=== PATIENT | female | born 1975 | race Caucasian/White ===

== ENCOUNTER 2019-04-19 12:43 | Outpatient (CLI) | payer OTHER ==
[2019-04-19] MEDS ORDERED: Gadobenate Dimeglumine 529 MG/1 ML (20ML VIAL) ONE (13:00)
--- NOTE | 2019-04-19 16:13 | MRI ---
MRI OF THE BILATERAL BREAST WITHOUT AND WITH CONTRAST: 04/19/19 COMPARISON: None. HISTORY: High risk of breast cancer. Patient has a strong family history of breast cancer, prostate cancer and pancreatic cancer. COMPARISON: None. TECHNIQUE: Multiplanar and multisequence MR images were obtained of the bilateral breasts without and with IV c ontrast. 3D MIP reformats and contrast enhancement curves were generalized on a [employer] workstation. FINDINGS: Scattered fibroglandular breast tissue is seen. Minimal background parenchymal enhancement is present . No suspicious enhancement or suspicious mass is seen within either breast. No axillary adenopathy is seen. No internal mammary lymph nodes are identified. The visualized anterior liver and osseous structures are unremarkable. IMPRESSION: BIRADS 1: Negative Routine annual screening mammography (for women over age 40) is still recommended as calcifications cannot be assessed with breast MRI. POS: [facility]ET
== END 2019-04-19 12:44 | disposition home or self-care (01) ==
LOC: BICMRI 12:43
PROVIDERS: ATTEND Family Medicine
DX: Z91.89 Other specified personal risk factors, not elsewhere classified (principal)
CPT/HCPCS: A9577; C8908

== ENCOUNTER 2023-03-16 09:42 | Outpatient (CLI) | payer OTHER | END 2023-03-16 09:43 | disposition home or self-care (01) | LOC: BICMRI 09:42 | PROVIDERS: ATTEND Physician Assistant | DX: Z15.01 Genetic susceptibility to malignant neoplasm of breast (principal) | CPT/HCPCS: A9577; C8908 ==

== ENCOUNTER 2023-06-02 08:03 | Outpatient (CLI) | payer OTHER | END 2023-06-02 08:04 | disposition home or self-care (01) | LOC: BICMAMMO 08:03 | PROVIDERS: ATTEND Obstetrics & Gynecology | DX: N63.24 Unspecified lump in the left breast, lower inner quadrant (principal); Z15.01 Genetic susceptibility to malignant neoplasm of breast | CPT/HCPCS: 77066; G0279 ==